=== PATIENT | male | born 1965 | race Caucasian/White ===

== ENCOUNTER → 2020-08-19 | Outpatient (CLI) | payer BC ==
--- NOTE | 2020-08-19 12:12 | RAD ---
CT ABDOMEN+PELVIS WO INDICATION: FLANK PAIN FOR 3 WEEKS EXAM: Noncontrast CT of the abdomen and pelvis. Coronal and sagittal reformatted images were perform ed. PQRS compliance statement: One or more of the following individualized dose reduction techniques were utilized for this examinat ion: 1. Automated exposure control 2. Adjustment of the mA and/or kV according to patient size 3. Use of iterative reconstruction technique COMPARISON: 05/30/2012 FINDINGS: No free air, free fluid, or fluid collection. Lower chest: The visualized lower lungs are aerated. No pleural or pericardial effusion. ABDOMEN: Liver: The noncontrast liver is homogeneous in attenuation. Gallbladder and biliary: Normal gallbladder without radiopaque stone. Normal caliber bile ducts. Spleen: Normal spleen. Pancreas: The noncontrast pancreas is homogeneous in attenuation without peripancreatic inflammatory changes. Adrenal glands: Normal adrenal glands. Kidneys and ureters: Segmental dilatation of the right mid ureter and the right distal ureter, unchan ged from exam of 05/30/2012. No opaque urinary calculi. Left kidney is absent. GI tract: The stomach is decompressed and poorly evaluated. Normal caliber small bowel and colon. Nor mal appendix. Vascular structures: Normal caliber abdominal aorta. Lymph nodes: No lymphadenopathy in the abdomen or pelvis. PELVIS: Genitourinary system: Bladder is distended. SKELETAL STRUCTURES AND SOFT TISSUES: Degenerative changes of the spine. Small fat-containing right l ower quadrant abdominal wall hernia. IMPRESSION: 1. No hydronephrosis or opaque urinary calculi. 2. Segmental dilatation of the right mid ureter and right distal ureter are unchanged from 2012. 3. Left kidney is surgically or congenitally absent Electronically signed by: Jordon Olivier MD (08/19/2020 12:10 PM) [id number]
== END ==
LOC: CT 09:45
PROVIDERS: ATTEND Family Medicine
DX: N20.0 Calculus of kidney (principal)
CPT/HCPCS: 74176